=== PATIENT | male | born 1995 | race Caucasian/White ===

== ENCOUNTER 2019-08-20 13:21 | Emergency (ER) | payer OTHER ==
[~2019-08-20] VITALS: Ht 170.2 cm; Wt 72.6 kg
[2019-08-20] MEDS ORDERED: CHILDREN'S ASPI81 MG (13:55)
[2019-08-20] MEDS ORDERED: AMOX1TAB5 (13:55)
== END 2019-08-20 19:55 | disposition home or self-care (01) ==
LOC: ER 13:21
DX: L03.116 Cellulitis of left lower limb (principal)